=== PATIENT | female | born 1995 | race Hispanic/Latino ===

== ENCOUNTER 2020-04-17 09:39 | Inpatient (IN) | payer OTHER ==
[2020-04-17 10:29] LABS: BHCG - Serum POSITIVE (NEGATIVE); Pregs Control Background? CLEAR/WHITE (CLR/WHITE); Pregs Control Bar Appear? YES (CONTROL BAR)
--- NOTE | 2020-04-17 11:02 | ULT ---
OB ULTRASOUND: HISTORY: Positive test. Vaginal spotting. FINDINGS: A single live intrauterine gestation is seen with measurements corresponding to an estimated gestatio nal age of 35 weeks, 1 dayand ARUN at 05/21/2020. The estimated weight measures 2451 g or 5 lbs. 6 oz. biometry: BPD: 8.75 cm, 35 weeks 2 days HC: 31.73 cm, 35 weeks 5 days AC: 29.38 cm, 33 weeks 3 days FL: 7.00 cm, 35 weeks 6 days heart rate: 139bpm Placenta: Posterior Placenta previa: No JYOTI: 4cm Cervical length: 3.3cm A three-vessel cord, kidneys, urinary bladder, stomach, 4 chambered heart, are visualized. No d efinite anomalies are seen in the visualized parts. IMPRESSION: 1. Single live intrauterine gestation of 35 weeks 1 dayestimated gestational age and ARUN at 05/21/2020 2. Oligohydramnios.
[2020-04-17] MEDS ORDERED: Acetaminophen 500 MG TAB PO PRN (12:04)
[2020-04-17] MEDS ORDERED: Ondansetron PF 4 MG/2 ML Vial IVP PRN (12:04)
[2020-04-17] MEDS ORDERED: Promethazine HCl 25 MG/ML VIAL IM PRN (12:04)
[2020-04-17 12:06] VITALS: BMI 27.4
--- NOTE | 2020-04-17 12:12 | PDOC.LDHP ---
Labor and Delivery H&P Chief complaint: other (spotting) HPI: 25 y/o G1 at 35w1d by today's ultrasound presents to L&D from ED. Patient reports she has had regular, monthly cycles until 2 months ago. Since then, she has not had a period and took a test last Thursday. She thought she was 8 weeks along and started having spotting this morning when she wiped. She has not required a pad. She denies heavy VB, any LOF, abdominal pain, or other concerns. She has felt the baby move. ROS neg for HEENT, cv, pulm, gi, gu, neuro, psych, skin, musculoskeletal or constitutional symptoms other than mentioned above. OB History Details: First Current complications: other (no care) Past Medical History: None Current medications: none Previous surgical history: none Allergies/Adverse Reactions: Allergies Allergy/AdvReac Type Severity Reaction Status Date / Time No Known Allergies Allergy Verified 04/17/20 11:50 Social history: none - Physical Exam Vital signs reviewed and normal: yes General: NAD, resting Lungs: nonlabored breathing Abdomen: gravid Extremeties: no edema FHT: category 1 (135, mod variability, + accels, no decels) [place] contractions every: 3-5 mins - Vaginal Exam cm dilated: 3 (No blood, pooling, or valsalva) Effacement: 25% Station: -3 - OB Labs Blood type: O RH: positive - Assessment 25 y/o G1 at 35w1d with newly diagnosed 35 week IUP based on today's ultrasound. US showed EFW of 5lb 6oz, JYOTI of 4cm. It is unclear if the oligohydramnios is isolated, or if this could be a growth restricted fetus, as she has no PNC or prior ultrasound to compare to. Overall, status is reassuring. - Plan Plan: observation in L&D -: New OB labs, UDS, VP3, GC/CT, GBS and amnisure collected and pending COVID pending Will observe in L&D today for IV hydration and do BPP in am if amnisure is negative.
[2020-04-17 13:45] LABS: Hemoglobin 10.3 g/dL (12.0-16.0); Mean Corpuscular HGB CONC 32.2 g/dL (32.0-36.0); Mean Corpuscular Hemoglobin 24.8 pg (27.0-31.0); Mean Platelet Volume 9.5 fL (7.4-10.4); Platelet Count 351 thou/uL (130-400); RBC Distribution Width 14.7 % (11.5-14.5); Red Blood Cell (RBC) Count 4.15 mill/uL (4.20-5.40); White Blood Cell (WBC) Count 8.4 thou/uL (4.8-10.8)
[2020-04-17 13:55] LABS: Amnisure Test No Membranes Rupture (No Rupture)
[2020-04-17 13:56] LABS: Amnisure Internal Control QC ACCEPTABLE (ACCEPTABLE)
--- NOTE | 2020-04-17 14:13 | PDOC.BPN ---
- Brief Progress Note Encounter Date: 04/17/20 Encounter Time: 14:12 Amnisure negative. Continues to contract q3 mins, but not painful. Continue to monitor.
[2020-04-17 14:16] LABS: Amphetamine Not Detected (NotDetected); Barbiturates Screen Not Detected (NotDetected); Benzodiazepine Screen Not Detected (NotDetected); Cocaine Metabolite Screen Not Detected (NotDetected); Medtox Control Line Valid? VALID (VALID); Medtox Reader # READER 1; Methadone Not Detected (NotDetected); Methamphetamine Not Detected (NotDetected); Opiate Screen Not Detected (NotDetected); Oxycodone Screen Not Detected (NotDetected); Phencyclidine (PCP) Not Detected (NotDetected); THC/Cannabinoid Screen Not Detected (NotDetected); Tricyclic Screen Not Detected (NotDetected)
[2020-04-17 14:26] LABS: HBSAg Index 0.23 S/CO (0-0.99); HIV (1/2) Antibody/Antigen Non-Reactive (NonReactive); HIV 1/2 INDEX 0.16 S/CO (<1.00); Hep B Surf Ag Non-Reactive S/CO (NonReactive); Syphilis Antibody Nonreactive (Nonreactive); Syphilis Antibody Index 0.04 S/CO (<1.00 Non-Reactive)
[2020-04-17] MEDS ORDERED: Penicillin G Potassium 5 MILL.UNITS VIAL ONE (16:45)
[2020-04-17] MEDS ORDERED: Betamet Acet/Betamet Na Ph 30 MG/5 ML VIAL ONE (16:45)
--- NOTE | 2020-04-17 16:53 | PDOC.BPN ---
- Brief Progress Note Encounter Date: 04/17/20 Encounter Time: 16:51 Patient continues to ctx regularly. Recheck SVE /2. Will start PCN and give Celestone. Discussed with Dr. Melgar in NICU. Continue to monitor.
[2020-04-17] MEDS ORDERED: Penicillin G Potassium 5 MILL.UNITS in Sodium Chloride 0.9% 100 ML IVPB SCH (17:00)
[2020-04-17] MEDS: Betamet Acet/Betamet Na Ph 30 MG/5 ML VIAL IM SCH (17:06)
[2020-04-17 17:59] LABS: SARS-CoV-2 MS2 Positive; SARS-CoV-2 N Gene Negative; SARS-CoV-2 S Gene Negative; SARS-CoV-2 by NAA Not Detected (NotDetected); SARS-CoV-2 orf1ab Negative
[2020-04-17] MEDS: Penicillin G 2.5 MILL.units 2.5 MILL.UNITS in Premix Bag 1 BAG IVPB SCH (21:09)
[2020-04-17] MEDS: metroNIDAZOLE 500 MG TAB PO SCH (21:09)
--- NOTE | 2020-04-17 21:51 | PDOC.BPN ---
- Brief Progress Note Encounter Date: 04/17/20 Encounter Time: 21:50 Patient requesting food. Continues to have regular ctx. SVE recheck 4/-2. Continue PCN, expectant management.
[2020-04-18] MEDS: Penicillin G 2.5 MILL.units 2.5 MILL.UNITS in Premix Bag 1 BAG IVPB SCH ×4 (01:31→14:17)
--- NOTE | 2020-04-18 07:09 | PDOC.BPN ---
- Brief Progress Note Encounter Date: 04/18/20 Encounter Time: 07:05 S: Patient with pain overnight, described as strong cramps. Ctx now spaced out to q5-6 mins from every 2 mins. O: AFVSS Gen - AAO, NAD Abd - gravid, NTTP SVE - deferred Ext - no edema A/P: Will get BPP this morning to reassess JYOTI. Continue to monitor. Will hand off to Dr. Pena this morning.
[2020-04-18] MEDS ORDERED: FLU VACC QS2020-21(6MOS UP)/PF 60 MCG/0.5 ML SYRINGE IM ONE (09:00)
[2020-04-18] MEDS: metroNIDAZOLE 500 MG TAB PO SCH ×2 (09:30→22:56)
--- NOTE | 2020-04-18 11:53 | ULT ---
ULTRASOUND BIOPHYSICAL PROFILE: Date: 04/18/2020 HISTORY: distress. FINDINGS: A single, live intrauterine gestation is seen, with a heart rate of 128 beats/minute. JYOTI is 5. 8 cm. Placenta is posteriorly located. OB Biophysical Profile: Tone: 2 Breathin Movements: 2 Amniotic Fluid: 2 IMPRESSION: 1. Ultrasound biophysical profile score is 8/8. 2. Oligohydramnios. POS: AH
[2020-04-18] MEDS ORDERED: Betamet Acet/Betamet Na Ph 30 MG/5 ML VIAL IM SCH (12:15)
[2020-04-18] MEDS: Betamet Acet/Betamet Na Ph 30 MG/5 ML VIAL IM SCH (13:00)
[2020-04-18] MEDS ORDERED: Lidocaine 1% (PF) 30 ML VIAL ONE (21:21)
[2020-04-18] MEDS ORDERED: NS / Oxytocin 40 units/1000ml 1,000 ML ONE ×2 (21:22→22:41)
[2020-04-18] MEDS ORDERED: Lanolin Ointment 7 GM TUBE TOP PRN (23:41)
[2020-04-18] MEDS ORDERED: Benzocaine-Menthol 82.5 ML CAN TOP PRN (23:41)
[2020-04-18] MEDS ORDERED: hydrALAZINE 20 MG/ML VIAL SLOW IVP PRN (23:41)
[2020-04-18] MEDS ORDERED: NS / Oxytocin 40 units/1000ml 1,000 ML IV SCH (23:41)
[2020-04-18] MEDS ORDERED: Preparation H Ointment 28 GM TUBE PR PRN (23:41)
[2020-04-18] MEDS ORDERED: Milk Of Magnesia 30 ML UDCUP PO PRN (23:41)
[2020-04-18] MEDS ORDERED: Bisacodyl 10 MG SUPP PR PRN (23:41)
[2020-04-19] MEDS: Ibuprofen 800 MG TAB PO SCH ×3 (00:38→17:27)
[2020-04-19] MEDS: Penicillin G 2.5 MILL.units 2.5 MILL.UNITS in Premix Bag 1 BAG IVPB SCH (00:39)
--- NOTE | 2020-04-19 00:57 | DN ---
DATE OF PROCEDURE: 04/18/2020 The patient delivered a male infant on 04/18/2020 at 2120 hours by spontaneous vaginal delivery. Apgars were 9 and 9 and weight was 2484 g. Placenta delivered spontaneously, followed by Pitocin infusion. Quantitative blood loss was 400 cc. There was a small left labial laceration and a vaginal laceration requiring 2-0 chromic for repair. DELIVERING PHYSICIAN: Dalton Pena MD COUNTS: Correct. CONDITION: Stable. COMPLICATIONS: None. Of note, fetus on exam appeared to be term, though the based on us the size was of a 35 weeker. Job ID: [id number] MTDD
[2020-04-19 07:16] LABS: #Lymphocytes 1.1 thou/uL (1.20-3.40); #Neutrophils 15.4 thou/uL (1.40-6.50); %Basophils 0.2 % (0.0-1.0); %Eosinophils 0.3 % (0.0-10.0); %Lymphocytes 6.1 % (21.0-51.0); %Monocytes 5.8 % (0.0-10.0); %Neutrophils 87.6 % (42.0-75.0); Hemoglobin 9.2 g/dL (12.0-16.0); Mean Corpuscular HGB CONC 31.7 g/dL (32.0-36.0); Mean Corpuscular Hemoglobin 24.9 pg (27.0-31.0); Mean Corpuscular Volume 78.5 fL (78.0-98.0); Mean Platelet Volume 8.6 fL (7.4-10.4); Platelet Count 362 thou/uL (130-400); RBC Distribution Width 15.1 % (11.5-14.5); Red Blood Cell (RBC) Count 3.68 mill/uL (4.20-5.40); White Blood Cell (WBC) Count 17.6 thou/uL (4.8-10.8)
--- NOTE | 2020-04-19 08:03 | PRG ---
DATE OF SERVICE: 04/19/2020 OB NOTE SUBJECTIVE: The patient is a 25-year-old, G1, now P1 female, day 1, status post a spontaneous vaginal delivery. The patient reports this morning she is tolerating p.o., voiding on her own, having decreased lochia, and good pain control. OBJECTIVE: VITAL SIGNS: Blood pressure is 117/73, temperature 98.7, pulse is 71, and respiratory rate of 16. GENERAL: She appears to be in no acute distress. She is alert, oriented, cooperative, and pleasant to interact with. HEAD: Normocephalic and atraumatic. : Fundus is firm. EXTREMITIES: Nontender, nonedematous. ASSESSMENT AND PLAN: The patient is day 1, status post a spontaneous vaginal delivery. Anticipate discharge tomorrow. Job ID: [id number]
[2020-04-19] MEDS ORDERED: Adacel (T-DAP) 0.5 ML SYRINGE IM ONE (09:00)
[2020-04-19] MEDS: Ferrous Sulfate 325 MG TAB PO SCH ×2 (09:23→17:27)
[2020-04-19] MEDS: metroNIDAZOLE 500 MG TAB PO SCH ×2 (09:23→21:07)
[2020-04-19] MEDS: Prenatal Vitamin 1 TAB PO SCH (09:23)
[2020-04-19] MEDS: Docusate Calcium (SURFAK) 240 MG CAP PO SCH ×2 (09:23→21:07)
[2020-04-19 11:21] LABS: Hep C IgG Ab Non-Reactive (NonReactive); Hep C Index 0.08 S/CO (0-0.79)
[2020-04-19] MEDS ORDERED: FLU VACC QS2020-21(6MOS UP)/PF 60 MCG/0.5 ML SYRINGE IM ONE (11:30)
[2020-04-19 23:00] LABS: Chlamydia by PCR Not Detected (NotDetected); GC by PCR Not Detected (NotDetected)
[2020-04-20 08:26] VITALS: BP 108/83; TEMP 97.9
[2020-04-20] MEDS: Prenatal Vitamin 1 TAB PO SCH (08:47)
[2020-04-20] MEDS: metroNIDAZOLE 500 MG TAB PO SCH (08:47)
[2020-04-20] MEDS: Ibuprofen 800 MG TAB PO SCH ×2 (08:48→17:46)
[2020-04-20] MEDS: Ferrous Sulfate 325 MG TAB PO SCH ×2 (08:48→17:46)
[2020-04-20] MEDS: Docusate Calcium (SURFAK) 240 MG CAP PO SCH (08:48)
[2020-04-20] MEDS ORDERED: Boostrix 0.5 ML VIAL IM ONE (17:45)
== END 2020-04-20 18:45 | disposition home or self-care (01) | DRG 806 ==
LOC: ERS 09:39 → L&D/OP 11:41 → L&D 23:00 → 3SW 04-19 00:40 → OBSVTOIN 04-19 10:13
PROVIDERS: ADMIT Obstetrics & Gynecology; ATTEND Obstetrics & Gynecology
PROC: 10E0XZZ Delivery of Products of Conception, External Approach (ICD-10-PCS; principal; 2020-04-19)
PROC: 0UQGXZZ Repair Vagina, External Approach (ICD-10-PCS; 2020-04-19)
PROC: 0UQMXZZ Repair Vulva, External Approach (ICD-10-PCS; 2020-04-19)
DX: O60.14X0 Preterm labor third trimester with preterm delivery third trimester, not applicable or unspecified (principal); O41.03X0 Oligohydramnios, third trimester, not applicable or unspecified; Z37.0 Single live birth; O71.4 Obstetric high vaginal laceration alone; Z20.828 Contact with and (suspected) exposure to other viral communicable diseases; Z3A.35 35 weeks gestation of pregnancy
CPT/HCPCS: 36415; 76815; 76819; 80306; 84112; 84702; 84703; 85025; 85027; 86762; 86780; 86803; 86850; 86900; 86901; 87081; 87340; 87389; 87480; 87491; 87510; 87591; 87635; 87660; 90471; 90662; 90715; 96372; 96374; 96376; 99285; G0008; G0378; J0702; J2001; J2540; U0003

== ENCOUNTER 2022-11-21 13:46 | Outpatient (CLI) | payer OTHER | END 2022-11-21 13:47 | disposition home or self-care (01) | LOC: BICULT 13:46 | PROVIDERS: ATTEND Family Medicine | DX: O09.892 Supervision of other high risk pregnancies, second trimester (principal); Z3A.21 21 weeks gestation of pregnancy | CPT/HCPCS: 76805 ==